=== PATIENT | male | born 1990 | race Two or more races ===

== ENCOUNTER 2020-09-16 18:33 | Emergency (ER) | payer SELFPAY ==
--- NOTE | 2020-09-16 18:42 | NUR ---
CALLED IN ED WAITING ROOM. NO RESPONSE.
--- NOTE | 2020-09-16 18:52 | NUR ---
CALLED IN ED WAITING ROOM FOR THE SECOND TIME. NO RESPONSE.
--- NOTE | 2020-09-16 19:18 | NUR ---
PT LEFT BEFORE BEING TRIAGE.
[2020-09-16] MEDS ORDERED: HYDR28.32 TP (22:07)
== END 2020-09-16 19:21 | disposition left against medical advice (07) ==
LOC: ER 18:43
DX: Z53.21 Procedure and treatment not carried out due to patient leaving prior to being seen by health care provider (principal)

== ENCOUNTER 2020-09-16 20:50 | Emergency (ER) | payer SELFPAY ==
[~2020-09-16] VITALS: Ht 180.3 cm; Wt 83.5 kg
[2020-09-16 21:28] VITALS: BP 127/79
[2020-09-16] MEDS ORDERED: HYDR28.32 TP (22:07)
[2020-09-16] MEDS ORDERED: PENICILLIN G BENZATHINE 2.4 MMU/4 ML ML IM ONE ×2 (22:15→22:30)
== END 2020-09-16 22:59 | disposition home or self-care (01) ==
LOC: ER 20:57
DX: N48.5 Ulcer of penis (principal); Z79.899 Other long term (current) drug therapy
CPT/HCPCS: 96372; 99283; J0558

== ENCOUNTER 2021-02-24 15:09 | Emergency (ER) | payer SELFPAY ==
[~2021-02-24] VITALS: Ht 180.3 cm; Wt 90.7 kg
[~2021-02-24 15:09] MED LIST: HYDR28.32 TP
[2021-02-24 15:27] VITALS: BP 126/74
--- NOTE | 2021-02-24 15:27 | NUR ---
BIBS C/O PENILE DISCHARGE STARTED 02/20/21. VITALS ARE WITHIN NORMAL LIMITS. BREATHING IS EVEN AND UNLABORED.
[2021-02-24] MEDS ORDERED: DOXY100C2 PO (15:50)
[2021-02-24] MEDS ORDERED: LIDOCAINE /MPF 1% VIAL 5 ML VIAL ONE (15:58)
[2021-02-24] MEDS ORDERED: CEFTRIAXONE 500 MG VIAL ONE (15:58)
[2021-02-24] MEDS ORDERED: CEFTRIAXONE 500 MG VIAL IM ONE (16:00)
--- NOTE | 2021-02-24 16:00 | NUR ---
URINE COLLECTED AND SENT TO LAB
--- NOTE | 2021-02-24 16:20 | NUR ---
Patient discharged to home in stable condition. Written and verbal after care instructions given. Patient verbalizes understanding of instruction. PT ambulatory with a steady gait
[2021-02-24 18:15] LABS: BILIRUBIN,URINE NEGATIVE (NEGATIVE); COLOR,URINE YELLOW (YELLOW); LEUKOCYTE ESTERASE ,URINE SMALL (NEGATIVE); NITRITE, URINE NEGATIVE (NEGATIVE); PROTEIN,URINE NEGATIVE (NEGATIVE); UGLUCOSE NEGATIVE (NEGATIVE); UROBILINOGEN,URINE 0.2 EU/dL (0.2)
[2021-02-24 18:31] LABS: WBC,URINE 21-50 /HPF (0-3)
[2021-02-24 18:32] LABS: BACTERIA,URINE None seen /HPF (None Seen); SQUAMOUS EPITHELIAL CELL,UR Rare /HPF (None Seen)
== END 2021-02-24 17:25 | disposition home or self-care (01) ==
LOC: ER 15:10
DX: N34.2 Other urethritis (principal); R36.9 Urethral discharge, unspecified
CPT/HCPCS: 81001; 87086; 87491; 87591; 96372; 99283; J0696; J3490

== ENCOUNTER 2021-04-26 10:50 | Emergency (ER) | payer SELFPAY ==
[~2021-04-26] VITALS: Ht 180.3 cm; Wt 81.6 kg
[~2021-04-26 10:50] MED LIST changes: +DOXY100C2 PO
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
--- NOTE | 2021-04-26 13:12 | NUR ---
Patient discharged to home in stable condition. Written and verbal after care instructions given. Patient verbalizes understanding of instruction.
[2021-04-26 13:13] VITALS: BP 130/66
== END 2021-04-26 13:13 | disposition home or self-care (01) ==
LOC: ER 10:54
DX: S63.591A Other specified sprain of right wrist, initial encounter (principal); S16.1XXA Strain of muscle, fascia and tendon at neck level, initial encounter; S39.012A Strain of muscle, fascia and tendon of lower back, initial encounter; V32.5XXA Driver of three-wheeled motor vehicle injured in collision with two- or three-wheeled motor vehicle in traffic accident, initial encounter; Y93.89 Activity, other specified; Y92.413 State road as the place of occurrence of the external cause; Y99.8 Other external cause status
CPT/HCPCS: 72050-TC; 72110-TC; 73090-TC; 73110